=== PATIENT | male | born 1990 | race Hispanic/Latino ===

== ENCOUNTER 2019-01-27 00:21 | Emergency (ER) | payer SELFPAY ==
[2019-01-27 00:22] VITALS: BP 135/95; PULSE 69; RESP 18; TEMP 36.5; O2SAT 96; BMI 24.3
--- NOTE | 2019-01-27 00:39 | CT_ITS ---
HISTORY: UPPER ABDOMEN PAIN X 2 DAYS,ELEVATED BP EXAMINATION: CT Abdomen And Pelvis W/ Contrast TECHNIQUE: Helically acquired images were obtained of the abdomen and pelvis following IV contrast. A radiation dose optimization technique was used for this scan. IV Contrast dosage and agent: 100ML Isovue 300 Oral contrast: None. COMPARISON: None FINDINGS: Lower thorax: Clear. No pleural effusion or pericardial effusion. Normal liver, spleen, pancreas, gallbladder, and biliary system. Both kidneys are normal in position. Bilateral renal opacification without evidence of hydronephrosis, pyelonephritis, or suspicious renal lesion. Adrenal glands are not enlarged. Normal abdominal aorta and IVC. No ascites or retroperitoneal lymph enlargement. GI tract: Constipation pattern with large fecal residue within the right and transverse colon. No bowel obstruction. Normal appendix. Pelvis: No free fluid or lymph node enlargement. Small fat and fluid containing right inguinal hernia. Bones: No acute osseous abnormality. CT/Abdomen/Pelvis W IV Cont ONLY IMPRESSION: 1. Constipation pattern. No acute abdominal disease identified. Normal appendix. 2. Small fat and fluid containing right inguinal hernia. Otherwise negative exam. Individualized dose optimization techniques were used for this CT. at 0153 Reported and signed by: Jelani Osborne MD Electronically Signed: Jelani Osborne, at 1:52 EDT Tel , Service support ,
[2019-01-27] MEDS: 0.9% Normal Saline 1,000 ML 1000 ML IV (00:41)
[2019-01-27] MEDS: Ondansetron 4 MG/2 ML Vial IV (00:43)
[2019-01-27] MEDS: Morphine 4 MG/ML Syringe IV (00:44)
[2019-01-27 00:55] LABS: Absolute Neutrophil Count 5.3 X10^3/uL (2.0-7.7); Basophil# 0.07 X10^3/uL; Basophil% 0.7 % (0-1); Eosinophil# 0.32 X10^3/uL; Eosinophils% 3.4 % (0-5); Hematocrit 42.3 % (40-54); Hemoglobin 14.9 g/dl (13.0-16.5); Lymphocyte % 31.6 % (19-41); Mean Corp Hgb Conc 35.2 g/gl (32-36); Mean Corpuscular Hgb 30.2 pg (27.0-32.0); Mean Corpuscular Volume 85.6 fL (80-94); Monocyte# 0.81 X10^3/uL; Monocyte% 8.5 % (0-10); Neutrophil # 5.25 X10^3/uL (2.7-7.7); Neutrophil % 55.4 % (47-70); POSITIVE COUNT NO; POSITIVE DIFFERENTIAL NO; POSITIVE MORPHOLOGY NO; Platelet Count 217 K/mm3 (150-450); RBC Distribution Width CV 13.5 % (11.6-14.6); RBC Distribution Width SD 41.7 fl (35.1-43.9); Red Blood Count 4.94 M/mm3 (4.6-6.2); White Blood Count 9.5 K/mm3 (4.4-11.0)
[2019-01-27 01:11] LABS: ALB/GLOB Ratio 1.2 RATIO (0.9-2.4); AST(SGOT) 20 U/L (15-37); Alanine Aminotransfer ALT/SGPT 23 U/L (16-61); Albumin, Serum 4.1 g/dL (3.2-5.0); Alkaline Phosphatase 133 U/L (45-117); Anion Gap 9 (5-15); BUN 12 mg/dL (7-18); Calcium,Total 8.6 mg/dL (8.5-10.1); Chloride 105 mmol/L (98-107); Creatinine, Serum 0.92 mg/dL (0.70-1.30); EST Glomerular Filtration Rate 102 mL/min (>60); Est Glom Filt Rate - Afr Amer 123 mL/min (>60); Estimated Creatinine Clearance 113.59 ml/min; Globulin 3.4 g/dL (2.2-4.2); Glucose 114 mg/dL (74-106); Lipase 98 U/L (73-393); Potassium 3.5 mmol/L (3.5-5.1); Protein, Total 7.5 g/dL (6.4-8.2); Sodium Level 140 mmol/L (136-145)
--- NOTE | 2019-01-27 02:11 | ED.DCSUM_ITS ---
- ER Visit Summary Date of Service: 01/27/19 Chief Complaint: Abdominal pain History of Present Illness: The patient is a 28 M who presents with abdominal pain. This is been present for the last 2 days. He describes it as a pressure. His pain is all across the upper abdomen. He denies any nausea or vomiting. He has had some diarrhea over the last 2 days which is mild. No fevers, no chest pain, no shortness of breath. No history of prior similar symptoms. Physical Examination: Afebrile vitals unremarkable Heart regular rate and rhythm Lungs clear Abdomen soft Normal bowel sounds Patient has tenderness across the upper abdomen without guarding without rebound Test Results: CBC, CMP, lipase normal. CT of the abdomen and pelvis shows a right inguinal hernia as well as a constipation pattern otherwise normal. Emergency Department Course and Treatment: Patient was treated with IV fluids morphine Zofran. He is resting comfortably on reevaluation. He was advised of the above findings. He was advised to start MiraLAX. He may also have a component of gastritis I am uncertain if his pain is directly related constipation. He was given a prescription for Prilosec. He understands to return for new or worsening symptoms. Patient was discharged. Treatment Plan: [] Disposition: Discharge Impression: Epigastric abdominal pain Constipation This note was generated with [employer] dictation software. It may contain incorrect words, spelling, and punctuation that were not noted in review of the chart prior to signing ED Disposition - Plan for ED Patient: Referrals: Care Physician,No Primary [Primary Care Provider] -
--- NOTE | 2019-01-27 02:11 | ED.DEP ---
ED Disposition - Plan for ED Patient: Instructions: ED Abdominal Pain Unkn Cause Prescriptions: Omeprazole [Prilosec] 20 mg PO DAILY #30 cap Referrals: Care Physician,No Primary [Primary Care Provider] - Estevan Johnson MD [NON-STAFF] -
[2019-01-27 02:18] VITALS: BP 126/72; PULSE 70; RESP 16; O2SAT 100
== END 2019-01-27 02:19 | disposition home or self-care (01) ==
LOC: ED 00:50
PROVIDERS: Emergency Provider Emergency Medicine
DX: K59.00 Constipation, unspecified (principal); R10.13 Epigastric pain; K40.90 Unilateral inguinal hernia, without obstruction or gangrene, not specified as recurrent; R19.7 Diarrhea, unspecified; Z72.0 Tobacco use
CPT/HCPCS: 74177; 80053; 83690; 85025; 96361; 96374; 96375; 99283; J7030; Q9967; J2405